=== PATIENT | female | born 1980 | race Caucasian/White ===

== ENCOUNTER 2016-10-25 23:18 | Emergency (ER) ==
[2016-10-25] MEDS ORDERED: CLEOCIN PO STA (23:27)
[2016-10-25 23:29] VITALS: BP 138/78; TEMP 98.9; BMI 37.1
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
== END 2016-10-25 23:41 | disposition home or self-care (01) ==
LOC: ED 23:18
DX: L03.115 Cellulitis of right lower limb (principal)
CPT/HCPCS: 99283

== ENCOUNTER 2017-07-06 08:14 | Outpatient (CLI) ==
--- NOTE | 2017-07-06 08:52 | US ---
EXAM: Thyroid ultrasound HISTORY: Hypothyroidism. COMPARISON: Thyroid ultrasound 09/12/2013 TECHNIQUE: Sonographic evaluation of the thyroid was performed with limited doppler. FINDINGS: The right thyroid measures 3.3 x 1.2 x 0.9 cm. There is no nodule, cyst or calcification. There is normal color Doppler flow. The echogenicity is minimally heterogeneous. The isthmus measures 0.3 cm and thickness. The left thyroid measures 3.5 x 1.2 x 0.9 cm. There is no nodule, cyst or calcification. There is n ormal color Doppler flow. There is mild heterogeneous echogenicity. IMPRESSION: Mild thyroid heterogeneous appearance with no focal abnormality.
== END 2017-07-06 08:15 | disposition home or self-care (01) ==
LOC: RAD 08:14
PROVIDERS: ATTEND Family Medicine
DX: E03.9 Hypothyroidism, unspecified (principal)

== ENCOUNTER 2017-12-15 18:21 | Emergency (ER) | payer OTHER ==
[2017-12-15 18:22] VITALS: BMI 37.1
[2017-12-15 18:40] VITALS: BP 145/98; TEMP 100.7
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
== END 2017-12-15 20:28 | disposition home or self-care (01) ==
LOC: ED 18:21
DX: M54.2 Cervicalgia (principal); V89.2XXA Person injured in unspecified motor-vehicle accident, traffic, initial encounter
CPT/HCPCS: 81025; 99283

== ENCOUNTER 2018-01-05 10:19 | Outpatient (CLI) | payer OTHER ==
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
== END 2018-01-05 10:20 | disposition home or self-care (01) ==
LOC: RAD 10:19
PROVIDERS: ATTEND Family Medicine
DX: N64.4 Mastodynia (principal); S20.01XA Contusion of right breast, initial encounter; V89.2XXA Person injured in unspecified motor-vehicle accident, traffic, initial encounter

== ENCOUNTER 2018-02-04 09:24 | Outpatient (CLI) ==
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
== END 2018-02-04 09:25 | disposition home or self-care (01) ==
LOC: RAD 09:24
PROVIDERS: ATTEND Family Medicine
DX: N64.9 Disorder of breast, unspecified (principal); S20.01XA Contusion of right breast, initial encounter

== ENCOUNTER 2018-12-26 09:49 | Outpatient (CLI) | payer OTHER ==
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
--- NOTE | 2018-12-26 10:50 | MAMMO ---
EXAM: Bilateral digital diagnostic mammogram (2-D and 3-D) History: Right breast mass, follow-up Comparison: Bilateral mammogram 01/05/2018 Findings: MLO and CC views of bilateral breasts demonstrate scattered fibroglandular breast parenchy ma. CAD was reviewed by the radiologist. Tomosynthesis was performed. Stable benign bilateral mohamud st calcifications. There are no dominant masses and no suspicious microcalcifications. Impression: Benign bilateral mammogram. Recommend return to routine screening mammography schedule. BIRADS 2, benign
== END 2018-12-26 09:50 | disposition home or self-care (01) ==
LOC: RAD 09:49
PROVIDERS: ATTEND Family Medicine
DX: N64.9 Disorder of breast, unspecified (principal); R93.89 Abnormal findings on diagnostic imaging of other specified body structures

== ENCOUNTER 2019-04-10 07:22 | Outpatient (CLI) ==
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
== END 2019-04-10 07:23 | disposition home or self-care (01) ==
LOC: RAD 07:22
PROVIDERS: ATTEND Family Medicine
DX: R74.8 Abnormal levels of other serum enzymes (principal)